=== PATIENT | female | born 1970 | race Caucasian/White ===

== ENCOUNTER → 2019-09-10 17:30 | Outpatient (CLI) | payer OTHER, SELFPAY ==
[2019-05-31 08:30] VITALS: BMI 32.2
--- OUTSIDE RECORDS SUMMARY | 2020-01-16 12:50 | XMS RPT_ITS | CCD ---
:1970 External Reference #:[id number] Author Organization [facility] Care Team Providers Name Role Phone Samuel Primary Care Provider Allergies Reported Allergen Reaction(s) Severity Date of Onset Location Acetaminophen / oxyCODONE Vomiting 12-13-2005 - [facility] ([id number]) Amoxicillin Rash 02-14-2005 - [facility] ([id number]) Erythromycin Vomiting 02-14-2005 - [facility] ([id number]) Sulfamethoxazole / Rash 02-16-2016 - [facility] Trimethoprim ([id number]) topiramate Other: See Comments 04-19-2019 - Frieda denson [facility] ([id number]) Medications Medication Name Sig Date Prescriber Location aluminum chloride aluminum chloride 05-23-2014 Shayy Curry [facility] (DRYSOL) 20 % external (4419 5) solution Indications: Hyperhidrosis Apply 1 application to affected area daily as directed. 1 Bottle 1 05/23/2014 Active Comment: Apply 1 application to affec terrance area daily as directed. Escitalopram escitalopram oxalate 12-08-2019 - Cristal Cueva [facility] (LEXAPRO) 20 mg tablet 01-03-2020 (4419 5) Take 1 tablet by mouth once daily. 90 tablet 1 01/04/2020 Active Comment: Take 1 tablet by mouth once daily. Loratadine loratadine (CLARITIN) 10 07-29-2014 Arpan aggarwal [facility] mg tablet Indications: (4419 5) Chronic rhinitis Take 1 tablet by mouth once daily. 0 07/29/2014 Active Comment: Take 1 tablet by mouth once daily. naratriptan naratriptan (AMERGE) 04-02-2019 - Cristal Cueva [facility] 2.5 mg tablet TAKE 1 01-03-2020 (42880) TABLET BY MOUTH AT ONSET OF HEADACHE, MAY REPEAT IN 4 HOURS IF NEEDED 9 tablet 3 01/04/2020 Active Comment: TAKE 1 TABLET BY MOUTH AT ON SET OF HEADACHE, MAY REPEAT IN 4 HOURS IF NEEDED Ondansetron ondansetron orally 10-08-2016 [facility] disintegrating (ZOFRAN ODT) (81092) 4 mg disintegrating tablet Take 1 tablet by mouth every 6 hours as needed for Nausea/Vomiting. 24 tablet 1 10/08/2016 Active Comment: Take 1 tablet by mouth every 6 hours as needed for Nausea/Vomiting. Promethazine promethazine (PHENERGAN) 10-08-2016 [facility] 50 mg tab(s) Take 1 tablet ( 05219) by mouth every 6 hours as needed. 24 Each 2 10/08/2016 Active Comment: Take 1 tablet by mouth every 6 hours as needed. QUEtiapine QUEtiapine (SEROQUEL) 01-03-2015 Yumiko (Rafita-Patricio) [facility] 25 mg tablet Take 1 Rojelio (92305) tablet by mouth three times daily as needed. TAKE ONE TO TWO TABLETS THREE TIMES DAILY NEEDED 50 tablet 2 01/03/2015 Active Comment: Take 1 tablet by mouth three times daily as needed. TAKE ONE TO TWO TABLETS THREE TIMES DAILY NEEDED Sertraline sertraline (ZOLOFT) 50 04-02-2019 - [facility] mg tablet Indications: 12-22-2019 (4419 5) Anxiety Take 1 tablet by mouth once daily. 90 tablet 3 04/02/2019 12/22/2019 Discontinued Comment: Take 1 tablet by mouth once daily. Problems Active Problems Category Problem Name Status Date Location Adjustment disorders Adjustment disorder with Active 01-08-[address] [place] [address] depressed mood (22191) Anxiety disorders Anxiety Active 04-04-2015 [facility] ([id number]) Disorders of lipid Mixed hyperlipidemia Active 11-30-2015 [facility] metabolism (49906) Headache; including Migraine without aura Active 01-07-2006 - [facility] migraine (61066) Mood disorders Depressive disorder Active [facility] (87326) Other upper Chronic rhinitis Active 08-11-2008 [facility]inic respiratory disease (80566) Past or Other Problems Category Problem Name Status Date Location Fracture of lower Closed fracture of Completed 09-11-2007 - [facility] limb phalanx of foot (58634) Results Result Name Value Range Unit Interpretation Flag Date Location obsolete on 2019-12 OBSOLETE Refill (INTMWS) Normal 01-03-2020 [facility] ARACELY IBRAHIM ([id number]) 1970 F [place] Date Time Provider Department ([id number]) 01/03/20 CRISTAL COUCH INTMWS During your visit today, we recorded the following informati on about you: Lamar Sims 01/03/2020 11:28 AM Signed Patient's request for medication is as follows: Pending Prescriptions Disp Refills ESCITALOPRAM 20 MG TABLET 90 tablet 1 Sig: Take 1 tablet by mouth once daily. ISIS: No NARATRIPTAN 2.5 MG TABLET 9 tablet 3 Sig: TAKE 1 TABLET BY MOUTH AT ONSET OF HEADACHE, MAY REPEAT IN 4 HOURS IF NEEDED ISIS: No Prescription(s) as above. Please process accordingly. Lamar Sweeney LPN 01/04/2020 9:45 AM Signed Patient has been identified by name and date of : Yes Patient phones for refill(s): Pending Prescriptions Disp Refills ESCITALOPRAM 20 MG TABLET 90 tablet 1 Sig: Take 1 tablet by mouth once daily. ISIS: No NARATRIPTAN 2.5 MG TABLET 9 tablet 3 Sig: TAKE 1 TABLET BY MOUTH AT ONSET OF HEADACHE, MAY REPEAT IN 4 HOURS IF NEEDED ISIS: No Date of last office visit in primary care: 12/22/2019 3 month follow-up: 03/22/2020 Lauren Sweeney LPN Allergies As of Date: 01/03/2020 Noted Allergy Reaction AMOXIL (AMOXICILLIN) 02/14/2005 2 - Rash BACTRIM (SULFAMETHOXAZOLE-TRIMETH*02/16/2016 2 - Rash ERYTHROMYCIN 02/14/2005 11 - Vomiting PERCOCET (OXYCODONE-ACETAMINOPHEN)12/13/2005 11 - Vomiting TOPAMAX (TOPIRAMATE) 04/19/2019 14 - Other: See Comments Comments: Vision changes Date Reviewed: 04/15/2019 Reviewed by: Violette Durant LPN - Fully Assessed Reason for Visit: Refill Request [94] Order(s):escitalopram oxalate (LEXAPRO) 20 mg tabletTake 1 t ablet by mouth once daily.Disp: 90 tabletRfl: 1 naratriptan (AMERGE) 2.5 mg tabletTAKE 1 TABLET BY MOUTH AT ONSET OF HEADACHE, MAY REPEAT IN 4 HOURS IF NEEDEDDisp: 9 tabletRfl: 3 Prescriptions as of 01/03/2020 Sig: ESCITALOPRAM 20 MG TABLET Take 1 tablet by mouth once d* NARATRIPTAN 2.5 MG TABLET TAKE 1 TABLET BY MOUTH AT ONS* ONDANSETRON 4 MG DISINTEGRATI* Take 1 tablet by mouth every * PROMETHAZINE 50 MG TABLET Take 1 tablet by mouth every * QUETIAPINE 25 MG TABLET Take 1 tablet by mouth three * LORATADINE 10 MG TABLET Take 1 tablet by mouth once d* Patient taking differently: Take 10 mg by mouth as needed* ALUMINUM CHLORIDE 20 % TOPICA* Apply 1 application to affect * Problem List As Of Date 01/03/2020 Noted Resolved Migraine without aura [G43.009] 01/07/2006 More... ADJUSTMENT DISORDER WITH DEPRESSED MOOD [F43.21]01/07/2006 More... 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 Prescriptions ordered this encounter Disp Refills Start End ESCITALOPRAM 20 MG TABLET 90 t* 1 01/04/2020 Class: [employer] Route: ORAL Sig: Take 1 tablet by mouth once daily. NARATRIPTAN 2.5 MG TABLET 9 ta* 3 01/04/2020 Sig: TAKE 1 TABLET BY MOUTH AT ONSET OF HEADACHE, MAY REPEAT IN 4 HOURS IF NEEDED Medications Discontinued During This Encounter Prescriptions - escitalopram oxalate (LEXAPRO) 20 mg tablet (Discontinued) Take 1 tablet by mouth once daily. - naratriptan (AMERGE) 2.5 mg tablet (Discontinued) TAKE 1 TABLET BY MOUTH AT ONSET OF HEADACHE, MAY REPEA T IN 4 HOURS IF NEEDED Encounter Status:Closed by TAWANNA AYALA CNP on 01/04/20 progress on 2019-11 PROGRESS HNO ID: [id number] Normal 12-22-2019 [facility] Author: Cristal Milian ([id number]) Service: ? Author Type: Physician Type: Progress Notes Filed: 12/22/2019 10:05 AM Note Text: Chief Complaint No chief complaint on file. This Team Access Model visit is a virtual encounter. It requ ired patient-provider interaction for the medical decision making as documented below. HPI Aracely Ibrahim is a 49 year old female who is contacted tocj cheek for a virtual/telemedicine visit. This is an established patient o f Dr. CRISTAL COUCH MD. Aracely has been having a hard time with her divorce, she knew she was not getting better at all so we changed her to lexapro and stopp ed the zoloft she now is feeling much much better, def feels that things a re looking up in just 2 weeks and wants to cont to see how she does. Taking counseling from [facility] and had one yesterda y and that made her feel much much better too. She is very very happy a bout her improvement Past medical history, appointments, medications, allergies r lorenewejarett 12/22/2019 Previous Medical History PAST MEDICAL HISTORY Diagnosis Date - Allergic rhinitis, cause unspecified Allergic rhinitis - Choroidal effusion 04/16/2019 secondary to topamax use - Dysthymic disorder Depression (non-psychotic) - Headache(784.0) Headaches migraines - Snoring - Unspecified sinusitis (chronic) Chronic sinusitis Previous Surgical History PAST SURGICAL HISTORY Procedure Laterality Date - DELIVERY ONLY 05/2004 , low cervical - COLONOSCOP W/ OR W/O [facility] SPEC 02/12/2016 repeat 5 years/family history colon cancer in father - DANDC, DIAG AND/OR THERAPEUTIC 1993 Dilation AND curettage for menorrhagia - ESSURE DEVICE - PAST SURGICAL HISTORY OF 09/03 sinus surgery Family History FAMILY HISTORY Problem Relation Age of Onset - Stroke Mother 39 X2, caused by chiropractor - Hypertension Father - Headache Father - Colon Cancer Father - Prostate Cancer Father - other (Parkinson's Disease) Father - No Known Problems Brother - No Known Problems Daughter - Headache Paternal Grandmother - other (Other) Sister at 1 month of age (hole in heart) Patient Allergies ALLERGIES Allergen Reactions - Amoxil [Amoxicillin] Rash - Bactrim [Sulfametho* Rash - Erythromycin Vomiting - Percocet [Oxycodone* Vomiting - Topamax [Topiramate] Other: See Comments Vision changes Current Medications Current Outpatient Medications on File Prior to Visit Medication Sig - escitalopram oxalate (LEXAPRO) 20 mg tablet Take 1 tablet by mouth once daily. - naratriptan (AMERGE) 2.5 mg tablet TAKE 1 TABLET BY MOUTH AT ONSET OF HEADACHE, MAY REPEAT IN 4 HOURS IF NEEDED - ondansetron orally disintegrating (ZOFRAN ODT) 4 mg disint egrating tablet Take 1 tablet by mouth every 6 hours as needed for Na usea/Vomiting. - promethazine (PHENERGAN) 50 mg tab(s) Take 1 tablet by burak th every 6 hours as needed. - QUEtiapine (SEROQUEL) 25 mg tablet Take 1 tablet by mouth three times daily as needed. TAKE ONE TO TWO TABLETS THREE TIMES DAILY A S NEEDED - loratadine (CLARITIN) 10 mg tablet Take 1 tablet by mouth once daily. (Patient taking differently: Take 10 mg by mouth as needed. ) - aluminum chloride (DRYSOL) 20 % external solution Apply 1 application to affected area daily as directed. No current facility-administered medications on file prior t o visit. Social History Social History Tobacco Use - Smoking status: Never Smoker - Smokeless tobacco: Never Used Substance Use Topics - Alcohol use: Yes Frequency: Monthly or less Drinks per session: 1 or 2 Binge frequency: Never Comment: Seldom - Drug use: No Review of Symptoms GENERAL: No weight loss. No malaise or fevers HEENT: Negative for headaches No eye discharge or redness No earaches or drainage No sore throat Nose POS/NEG for congestion and nasal discharge NECK: Negative for lumps, pain or significant neck swelling RESPIRATORY: No wheezing, SOB, Difficulty breathing. CARDIOVASCULAR: Negative for chest pain GI: No nausea, vomiting, or diarrhea MUSCULOSKELETAL: Negative for muscle aches or bodyaches SKIN: Negative for lesions, rash, and itching Neuro: No lightheadedness or dizziness EXAM: LMP 07/10/2017 (Approximate) Deferred physical exam as visit was completed over the phone . Virtual visit completed using video, limited exam completed. General Appearance: Well appearing, alert, in no acute distr ess, well-hydrated, well nourished. Skin: Skin color Head: Normocephalic Psych: Attitude - cooperative, easily engaged in conversatio n Appearance - normal, hygiene and grooming appropriate Affect - euthymic, normal mood Mental status: Alert, attentive. Speech is clear and fluent with good repetition, comprehension Coordination: No abnormal or extraneous movements. Gait/Stance: Posture is normal. Health Maintenance List HEPATITIS C SCREENING due on 1990 HIV SCREENING due on 1990 DTAP,TDAP,TD(1 - Tdap) due on 1991 MAMMOGRAM due on 08/07/2018 INFLUENZA(1) due on 11/30/2019 DIABETES SCREEN due on 05/30/2020 COLONOSCOPY due on 02/11/2021 LIPID SCREEN due on 05/30/2022 PAP TESTING due on 08/07/2022 HPV TESTING due on 08/07/2022 MENINGOCOCCAL CONJUGATE Completed Data reviewed Last 5 Encounter BP Readings: Date: BP: 04/15/2019 138/88 04/02/2019 122/76 08/07/2017 130/84 07/11/2017 136/86 05/30/2017 114/76 BMI Readings from Last 5 Encounters: 04/15/19 : 33.81 kg/m? 04/02/19 : 33.64 kg/m? 08/07/17 : 33.47 kg/m? 07/11/17 : 33.30 kg/m? 05/30/17 : 32.27 kg/m? Last 5 Encounter Wt Readings: Date: Wt: 04/15/2019 89.4 kg (197 lb) 04/02/2019 88.9 kg (196 lb) 08/07/2017 88.5 kg (195 lb) 07/11/2017 88 kg (194 lb) 05/30/2017 85.3 kg (188 lb) Medication and allergy list reviewed, reconciled and updated 12/22/2019. ASSESSMENT/PLAN: 1. Adjustment disorder with depressed mood - ICD9: 309.0, IC D10: F43.21 (primary diagnosis) I asked the patient to con lexapro, we will see her in 2 wee ks at that time if she feels she needs to have anything added on we can decide that 2. 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 progress on 2019-11 PROGRESS HNO ID: [id number] Normal 12-08-2019 [facility] Author: Cristal Milian ([id number]) Service: ? Author Type: Physician Type: Progress Notes Filed: 12/08/2019 11:16 AM Note Text: Chief Complaint No chief complaint on file. This Team Access Model visit is a virtual encounter. It requ ired patient-provider interaction for the medical decision making as documented below. SJ Ibrahim is a 49 year old female who is contacted to y for a virtual/telemedicine visit. This is an established patient o f Dr. CRISTAL COUCH MD. Patient is going through a divorce, she never expected this. She notes she is really struggling right now, as they live in the the same house and he is out and dating, while she is having a hard time to let go . To add to that , with school being different she has so much to do ladarius t is different no down time. She is Seeing a therapist who is definitely he lping her. Past medical history, appointments, medications, allergies r eviewed 12/08/2019 Previous Medical History PAST MEDICAL HISTORY Diagnosis Date - Allergic rhinitis, cause unspecified Allergic rhinitis - Choroidal effusion 04/16/2019 secondary to topamax use - Dysthymic disorder Depression (non-psychotic) - Headache(784.0) Headaches migraines - Snoring - Unspecified sinusitis (chronic) Chronic sinusitis Previous Surgical History PAST SURGICAL HISTORY Procedure Laterality Date - DELIVERY ONLY 05/2004 , low cervical - COLONOSCOP W/ OR W/O [facility] SPEC 02/12/2016 repeat 5 years/family history colon cancer in father - DANDC, DIAG AND/OR THERAPEUTIC 1993 Dilation AND curettage for menorrhagia - ESSURE DEVICE - PAST SURGICAL HISTORY OF 09/03 sinus surgery Family History FAMILY HISTORY Problem Relation Age of Onset - Stroke Mother 39 X2, caused by chiropractor - Hypertension Father - Headache Father - Colon Cancer Father - Prostate Cancer Father - other (Parkinson's Disease) Father - No Known Problems Brother - No Known Problems Daughter - Headache Paternal Grandmother - other (Other) Sister at 1 month of age (hole in heart) Patient Allergies ALLERGIES Allergen Reactions - Amoxil [Amoxicillin] Rash - Bactrim [Sulfametho* Rash - Erythromycin Vomiting - Percocet [Oxycodone* Vomiting - Topamax [Topiramate] Other: See Comments Vision changes Current Medications Current Outpatient Medications on File Prior to Visit Medication Sig - sertraline (ZOLOFT) 50 mg tablet Take 1 tablet by mouth on ce daily. - naratriptan (AMERGE) 2.5 mg tablet TAKE 1 TABLET BY MOUTH AT ONSET OF HEADACHE, MAY REPEAT IN 4 HOURS IF NEEDED - ondansetron orally disintegrating (ZOFRAN ODT) 4 mg disint egrating tablet Take 1 tablet by mouth every 6 hours as needed for Na usea/Vomiting. - promethazine (PHENERGAN) 50 mg tab(s) Take 1 tablet by burak th every 6 hours as needed. - QUEtiapine (SEROQUEL) 25 mg tablet Take 1 tablet by mouth three times daily as needed. TAKE ONE TO TWO TABLETS THREE TIMES DAILY A S NEEDED - loratadine (CLARITIN) 10 mg tablet Take 1 tablet by mouth once daily. (Patient taking differently: Take 10 mg by mouth as needed. ) - aluminum chloride (DRYSOL) 20 % external solution Apply 1 application to affected area daily as directed. No current facility-administered medications on file prior t o visit. Social History Social History Tobacco Use - Smoking status: Never Smoker - Smokeless tobacco: Never Used Substance Use Topics - Alcohol use: Yes Frequency: Monthly or less Drinks per session: 1 or 2 Binge frequency: Never Comment: Seldom - Drug use: No Review of Symptoms GENERAL: No weight loss. No malaise or fevers HEENT: Negative for headaches No eye discharge or redness No earaches or drainage No sore throat Nose POS/NEG for congestion and nasal discharge NECK: Negative for lumps, pain or significant neck swelling RESPIRATORY: No wheezing, SOB, Difficulty breathing. CARDIOVASCULAR: Negative for chest pain GI: No nausea, vomiting, or diarrhea MUSCULOSKELETAL: Negative for muscle aches or bodyaches SKIN: Negative for lesions, rash, and itching Neuro: No lightheadedness or dizziness EXAM: LMP 07/10/2017 (Approximate) Deferred physical exam as visit was completed over the phone . Virtual visit completed using video, limited exam completed. General Appearance: Well appearing, alert, in no acute distr ess, well-hydrated, well nourished. Skin: Skin color Head: Normocephalic Psych: Attitude - cooperative, easily engaged in conversatio n Appearance - normal, hygiene and grooming appropriate Affect - euthymic, normal mood Mental status: Alert, attentive. Speech is clear and fluent with good repetition, comprehension Coordination: No abnormal or extraneous movements. Gait/Stance: Posture is normal. Health Maintenance List HEPATITIS C SCREENING due on 1990 HIV SCREENING due on 1990 DTAP,TDAP,TD(1 - Tdap) due on 1991 MAMMOGRAM due on 08/07/2018 INFLUENZA(1) due on 11/30/2019 DIABETES SCREEN due on 05/30/2020 COLONOSCOPY due on 02/11/2021 LIPID SCREEN due on 05/30/2022 PAP TESTING due on 08/07/2022 HPV TESTING due on 08/07/2022 MENINGOCOCCAL CONJUGATE Completed Data reviewed Last 5 Encounter BP Readings: Date: BP: 04/15/2019 138/88 04/02/2019 122/76 08/07/2017 130/84 07/11/2017 136/86 05/30/2017 114/76 BMI Readings from Last 5 Encounters: 04/15/19 : 33.81 kg/m? 04/02/19 : 33.64 kg/m? 08/07/17 : 33.47 kg/m? 07/11/17 : 33.30 kg/m? 05/30/17 : 32.27 kg/m? Last 5 Encounter Wt Readings: Date: Wt: 04/15/2019 89.4 kg (197 lb) 04/02/2019 88.9 kg (196 lb) 08/07/2017 88.5 kg (195 lb) 07/11/2017 88 kg (194 lb) 05/30/2017 85.3 kg (188 lb) Medication and allergy list reviewed, reconciled and updated 12/08/2019. ASSESSMENT/PLAN: 1. Depression, unspecified depression type - ICD9: 311, ICD1 0: F32.9 (primary diagnosis) See hpi, she will benefit from trying a different medication as she was not doing well on the zoloft 2. Anxiety - ICD9: 300.00, ICD10: F41.9 lexapro will help her with both 3. Mixed hyperlipidemia - ICD9: 272.2, ICD10: E78.2 - good control - Continue current medication. MD tor [facility] on 2019-09-13 VERNELL[facility] Telephone (FAMPWS) Normal 09-13-2019 [place] [facility] ARACELY IBRAHIM ([id number]) 1970 [facility] Date Time Provider Department ([id number]) 09/13/19 YENNI BURCH (VERNELL) TYL[place]ADEN During your visit today, we recorded the following informati on about you: Yeni Serrato RN 09/13/2019 12:02 PM Signed Patient had COVID-19 testing at [facility] last week, asking for te st results. Please review and advise. MARYAM Sanchez APRN.CNP 09/13/2019 12:22 PM Signed I've not seen any covid resu lts yet. Can we please check with [facility]. John Zhang LPN 09/13/2019 1:03 PM Signed Per [facility]- results are pending. John Burch APRN.CNP 09/13/2019 1:45 PM Signed Please let patient know that there are no results yet. OMA Isaacs LPN 09/13/2019 2:20 PM Signed Pt notified of the same. Advised we could contact her once w e receive the results. John Zhang LPN 09/15/2019 9:09 AM Signed *Pt returned call to office, notified of negative results. Yenni Burch APRN.VERNELL 09/15/2019 10:51 AM Signed Can please let patient know that we rece ived the results and her covid testing was negative. Because there can be false negatives with the testing, we do still encourage you to self-isolate for 10 days after the onset of symptoms. OMA Isaacs LPN 09/15/2019 11:55 AM Signed TC to pt, left message for pt to return call to office. John Zhang LPN Brisa Robin BROOKS 09/15/2019 2:52 PM Signed Patient returned call and went over resu lts, notes from Yenni Burch [employer] G[employer] HELPER with understanding. Allergies As of Date: 09/13/2019 Noted Allergy Reaction AMOXIL (AMOXICILLIN) 02/14/2005 2 - Rash BACTRIM (SULFAMETHOXAZOLE-TRIMETH*02/16/2016 2 - Rash ERYTHROMYCIN 02/14/2005 11 - Vomiting PERCOCET (OXYCODONE-ACETAMINOPHEN)12/13/2005 11 - Vomiting TOPAMAX (TOPIRAMATE) 04/19/2019 14 - Other: See Comments Comments: Vision changes Date Reviewed: 04/15/2019 Reviewed by: Violette Durant LPN - Fully Assessed Reason for Visit: Outside Lab Results [753] Cmt: [facility] lab results Prescriptions as of 09/13/2019 Sig: CEFDINIR 300 MG CAPSULE Take 1 capsule by mouth twice* SERTRALINE 50 MG TABLET Take 1 tablet by mouth once d* NARATRIPTAN 2.5 MG TABLET TAKE 1 TABLET BY MOUTH AT ONS* ONDANSETRON 4 MG DISINTEGRATI* Take 1 tablet by mouth every * PROMETHAZINE 50 MG TABLET Take 1 tablet by mouth every * QUETIAPINE 25 MG TABLET Take 1 tablet by mouth three * LORATADINE 10 MG TABLET Take 1 tablet by mouth once d* Patient taking differently: Take 10 mg by mouth as needed* ALUMINUM CHLORIDE 20 % TOPICA* Apply 1 application to affect * Problem List As Of Date 09/13/2019 Noted Resolved Migraine without aura [G43.009] 01/07/2006 More... ADJUSTMENT DISORDER WITH DEPRESSED MOOD [F43.21]01/07/2006 More... 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 Encounter Status:Closed by JOHN ZHANG LPN on 09/13/19 progress on 2019-08 PROGRESS HNO ID: [id number] Normal 09-10-2019 [facility] Author: Yenni (Machining [employer] Supervisor) Kiersten [place] ([id number]) Service: ? Author Type: Nurse Practitioner Type: Progress Notes Filed: 09/10/2019 4:36 PM Note Text: Chief Complaint Patient presents with: Telemedicine This Team Access Model visit is a virtual encounter. It requ ired patient-provider interaction for the medical decision making as documented below. Patient was offered a virtual/telemedicine appointmen t in lieu of an office visit due to recommendations to reduce patient exp osure to COVID-19. HIPAA secured video was used for evaluation of this patient. Patient agrees to the visit: Yes Patient Location: [facility] Aracely Ibrahim is a 49 year old female who is contacted [facility] for a virtual visit This is an established patient of Dr. CRISTAL MARTINEZ MD. 49 year old female with c/o URI sx over the last 8 days with Sore throat: Yes. Runny/stuffy nose: No. Postnasal drip: No. Throat clearing: No. Sinus pain/ pressure: No. Teeth pain: No. Headache Yes. moreso on the right side. Has hx of migraines. Body aches No. Ear pain: Yes - both ears -- but today is worse on the right . Cough: No. Production: N/a. Fever: Yes. Tmax 99.5 - 100. Hx asthma No. Hx pneumonia No. Smoker: No. OTC meds tried: took her amerge. Neither dose helped headach e. Did try tylenol/ibuprofen. Criteria: ? Age > 60 years old - no ? Age < 36 months - no ? On immunosuppressive therapy - no ? Cancer - no ? End-stage renal disease on dialysis - no ? Diabetes - no ? Hypertension - no ? Coronary artery disease - no ? Heart failure reduced ejection fraction - no ? Lung disease - no ? HIV/AIDS - no ? Solid organ transplants - no ? Obesity - yes -- BMI 33.81 AND Symptoms consistent with influenza-like illness (any two of the following): ? Cough - no ? Difficulty breathing - no ? Diarrhea - yes - but not worse than normal. ? Fever - yes ? Myalgia - yes -- today just doesn't feel good. ? Anosmia - no ? Loss of taste - no ? Vomiting - no. + nausea. 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 Past medical history, appointments, medications, allergies r eviewed 09/10/2019 Previous Medical History PAST MEDICAL HISTORY Diagnosis Date - Allergic rhinitis, cause unspecified Allergic rhinitis - Choroidal effusion 04/16/2019 secondary to topamax use - Dysthymic disorder Depression (non-psychotic) - Headache(784.0) Headaches migraines - Snoring - Unspecified sinusitis (chronic) Chronic sinusitis Previous Surgical History PAST SURGICAL HISTORY Procedure Laterality Date - DELIVERY ONLY 05/2004 , low cervical - COLONOSCOP W/ OR W/O [facility] SPEC 02/12/2016 repeat 5 years/family history colon cancer in father - DANDC, DIAG AND/OR THERAPEUTIC 1993 Dilation AND curettage for menorrhagia - ESSURE DEVICE - PAST SURGICAL HISTORY OF 09/03 sinus surgery Family History FAMILY HISTORY Problem Relation Age of Onset - Stroke Mother 39 X2, caused by chiropractor - Hypertension Father - Headache Father - Colon Cancer Father - Prostate Cancer Father - other (Parkinson's Disease) Father - No Known Problems Brother - No Known Problems Daughter - Headache Paternal Grandmother - other (Other) Sister at 1 month of age (hole in heart) Patient Allergies ALLERGIES Allergen Reactions - Amoxil [Amoxicillin] Rash - Bactrim [Sulfametho* Rash - Erythromycin Vomiting - Percocet [Oxycodone* Vomiting - Topamax [Topiramate] Other: See Comments Vision changes Current Medications Current Outpatient Medications on File Prior to Visit Medication Sig - sertraline (ZOLOFT) 50 mg tablet Take 1 tablet by mouth on ce daily. - naratriptan (AMERGE) 2.5 mg tablet TAKE 1 TABLET BY MOUTH AT ONSET OF HEADACHE, MAY REPEAT IN 4 HOURS IF NEEDED - ondansetron orally disintegrating (ZOFRAN ODT) 4 mg disint egrating tablet Take 1 tablet by mouth every 6 hours as needed for Na usea/Vomiting. - promethazine (PHENERGAN) 50 mg tab(s) Take 1 tablet by burak th every 6 hours as needed. - QUEtiapine (SEROQUEL) 25 mg tablet Take 1 tablet by mouth three times daily as needed. TAKE ONE TO TWO TABLETS THREE TIMES DAILY A S NEEDED - loratadine (CLARITIN) 10 mg tablet Take 1 tablet by mouth once daily. (Patient taking differently: Take 10 mg by mouth as needed. ) - aluminum chloride (DRYSOL) 20 % external solution Apply 1 application to affected area daily as directed. No current facility-administered medications on file prior t o visit. Social History Social History Tobacco Use - Smoking status: Never Smoker - Smokeless tobacco: Never Used Substance Use Topics - Alcohol use: Yes Comment: Seldom - Drug use: No EXAM: LMP 07/10/2017 (Approximate) Deferred physical exam as visit was completed over the phone /[employer]. Virtual visit completed using video, limited exam completed. General Appearance: Patient sounds or appears ill: No Skin: Skin color normal Head: Normocephalic Patient is not able to speak in complete sentences: No Patient has labored breathing: No. Patient is audibly coughing: No Psych: Attitude - cooperative, easily engaged in conversatio n Affect - Euthymic, normal mood Mental status: Alert. Speech is clear and fluent with good r epetition, comprehension Appearance - Normal hygiene and grooming appropriate Coordination: No abnormal or extraneous movements. Gait/Stance: Posture is normal. Health Maintenance List HEPATITIS C SCREENING due on 1990 HIV SCREENING due on 1990 DTAP,TDAP,TD(1 - Tdap) due on 1991 MAMMOGRAM due on 08/07/2018 INFLUENZA(Season Ended) due on 11/30/2019 DIABETES SCREEN due on 05/30/2020 COLORECTAL CANCER SCREENING,SEE MODIFIER due on 02/11/2021 LIPID SCREEN due on 05/30/2022 PAP TESTING due on 08/07/2022 HPV TESTING due on 08/07/2022 Data reviewed Last 5 Encounter BP Readings: Date: BP: 04/15/2019 138/88 04/02/2019 122/76 08/07/2017 130/84 07/11/2017 136/86 05/30/2017 114/76 BMI Readings from Last 5 Encounters: 04/15/19 : 33.81 kg/m? 04/02/19 : 33.64 kg/m? 08/07/17 : 33.47 kg/m? 07/11/17 : 33.30 kg/m? 05/30/17 : 32.27 kg/m? Last 5 Encounter Wt Readings: Date: Wt: 04/15/2019 89.4 kg (197 lb) 04/02/2019 88.9 kg (196 lb) 08/07/2017 88.5 kg (195 lb) 07/11/2017 88 kg (194 lb) 05/30/2017 85.3 kg (188 lb) Medication and allergy list reviewed, reconciled and updated 09/10/2019 ASSESSMENT/PLAN: 1. URI, acute - ICD9: 465.9, ICD10: J06.9 (primary diagnosis ) - Discussed viral etiology and rationale for treatment. - Symptomatic treatment with prn analgesia - Supportive care with fluids and rest - if no improvement or worsening over the next couple of day s -- start the omnicef. - CEFDINIR 300 MG CAPSULE 2. Suspected COVID-19 virus infection - ICD9: , ICD10: Z20.8 28 Discussed cannot r/o covid infection based on symptoms. Covid orders faxed to [facility] -- pt will call to schedule. Discussed to self-isolate. Treat symptoms. To ER with any severe symptoms. Discussed treatment plan and patient voices understanding. Patient's questions answered appropriately. Medications and potential side effects were discussed and pa tient voices understanding. Yenni Burch APRN.[employer] progress on 2019-03 PROGRESS HNO ID: [id number] Normal 04-15-2019 [place] Author: John ([facility]) [facility] Service: ? [place] Author Type: Nurse Practitioner ([id number]) Type: Progress Notes Filed: 04/15/2019 12:28 PM Note Text: CC: Patient presents with: Blurred Vision: just stated this morning HPI Aracely Ibrahim is a 48 year old female who presents today fo r vision changes. Blurry vision started upon waking today. Reports bad heada alexander last night, described as different from her migraine headaches. R esolved with ibuprofen. Did not sleep well as a result and woke with blur red vision to both eyes. Wears glasses, last eye exam ~1 year ago. Denies fever, chills, double vision, slurred speech, facial droop, numbness, tingling, weakness, lightheadedness, dizziness or syncope. Started Topamax ~14 days ago for migraines. Notes isolated episode of tingling to her fingertips ~1 week ago, now resolved. REVIEW OF SYSTEMS General: no fevers, no chills, no change in appetite and no change in energy HEENT: no changes in hearing, no sinus or nasal problems, Se e HPI Respiratory: no cough, no wheezing, no shortness of breath Cardiovascular: no chest pain, no chest pressure, no palpita tions and no swelling Neurologic: See HPI PAST MEDICAL HISTORY Diagnosis Date - Allergic rhinitis, cause unspecified Allergic rhinitis - Dysthymic disorder Depression (non-psychotic) - Headache(784.0) Headaches migraines - Snoring - Unspecified sinusitis (chronic) Chronic sinusitis PAST SURGICAL HISTORY Procedure Laterality Date - DELIVERY ONLY 05/2004 , low cervical - COLONOSCOP W/ OR W/O [facility] SPEC 02/12/2016 repeat 5 years/family history colon cancer in father - DANDC, DIAG AND/OR THERAPEUTIC 1993 Dilation AND curettage for menorrhagia - ESSURE DEVICE - PAST SURGICAL HISTORY OF 09/03 sinus surgery ALLERGIES Amoxil [Amoxicillin]; Bactrim [Sulfamethoxazole-Tr imethoprim]; Erythromycin; Percocet [Oxycodone-Acetaminophen] MEDICATIONS sertraline (ZOLOFT) 50 mg tablet Take 1 tablet by mouth once daily. topiramate (TOPAMAX) 25 mg tablet Take 1 tablet by mouth lucretia ly at bedtime. naratriptan (AMERGE) 2.5 mg tablet TAKE 1 TABLET BY MOUTH AT ONSET OF HEADACHE, MAY REPEAT IN 4 HOURS IF NEEDED ondansetron orally disintegrating (ZOFRAN ODT) 4 mg disinteg rating tablet Take 1 tablet by mouth every 6 hours as needed for Nausea/Vo miting. promethazine (PHENERGAN) 50 mg tab(s) Take 1 tablet by mouth every 6 hours as needed. QUEtiapine (SEROQUEL) 25 mg tablet Take 1 tablet by mouth th ree times daily as needed. TAKE ONE TO TWO TABLETS THREE TIMES DAILY A S NEEDED loratadine (CLARITIN) 10 mg tablet Take 1 tablet by mouth on ce daily. aluminum chloride (DRYSOL) 20 % external solution Apply 1 ap plication to affected area daily as directed. FAMILY HISTORY Problem Relation Age of Onset - Stroke Mother 39 X2, caused by chiropractor - Hypertension Father - Headache Father - Colon Cancer Father - Prostate Cancer Father - other (Parkinson's Disease) Father - No Known Problems Brother - No Known Problems Daughter - Headache Paternal Grandmother - other (Other) Sister at 1 month of age (hole in heart) Social History Tobacco Use - Smoking status: Never Smoker - Smokeless tobacco: Never Used Substance Use Topics - Alcohol use: Yes Comment: Seldom - Drug use: No PHYSICAL EXAM BP 114/94 (BP Site: Left Arm, BP Position: Sitting, BP Cuff Size: Large Adult) Pulse 100 Resp 18 Wt 89.4 kg (197 lb) BMI 33. 81 kg/m? General Appearance: well appearing, in no acute distress, al ert Pysch: mood and affect broad and appropriate Skin: Skin color, texture, turgor normal for age; Head: normocephalic, atraumatic Eyes: PERRLA, EOM's intact, conjunctiva pink and moist, no i cterus, sclera white, non-injected Ears: external ears normal to inspection and palpation, antonio ls clear, Left tympanic membrane normal. , Right tympanic membrane normal Lungs: lungs clear to auscultation. No wheezing, rhonchi, ra les Heart: RRR without murmur, gallop, or rubs. No ectopy Neurological: Gait normal. Sensation grossly intact., Negati ve findings: R handed., speech normal, mental status intact, cranial nerv es 2-12 intact, Romberg negative, muscle tone normal, muscle strengt h normal, rapid alternating movements normal, finger to nose normal, DTAP,TDAP,TD(1 - Tdap) due on 1983 MAMMOGRAM due on 08/07/2018 INFLUENZA(1) due on 11/29/2018 DIABETES SCREEN due on 05/30/2020 COLORECTAL CANCER SCREENING,SEE MODIFIER due on 02/11/2021 LIPID SCREEN due on 05/30/2022 PAP TESTING due on 08/07/2022 HPV TESTING due on 08/07/2022 ASSESSMENT/PLAN: 1. Blurred vision, bilateral - ICD9: 368.8, ICD10: H53.8 - Neuro exam unremarkable except reported blurry vision, do not feel imaging is necessary at this time - Suspect symptoms are side effect of Topamax recently start ed for Migraines - Stop Topamax - Schedule with eye doctor AMBROCIO - Reviewed red flag s/s and when to seek immediate medical a ttention, patient verbalizes understanding - Follow up in 2-4 weeks to reevaluate migraine prophylaxis 2. Elevated blood pressure reading in office without diagnos is of hypertension - ICD9: 796.2, ICD10: R03.0 - Recommended regular aerobic exercise. - Encouraged avoidance of excessive alcohol intake - Recheck in 2-4 weeks, sooner if needed. - Goal of BP <130/80 John James APRN.[facility] Prescription instructions reviewed with patient as applicabl e. Potential red flag symptoms discussed with the patient. Reviewed appro priate action plan to take if red flag symptoms occur. Patient agreeable t o treatment plan. cnov on 2019-04-15 CNOV Office Visit (INTMWS) Normal 04-15-[address] [place] [address] ARACELY Finch ([id number]) 1970 F [place] Date Time Provider Department ([id number]) 04/15/19 11:20 AM JOHN JAMES (VERNELL) INTM[facility] During your visit today, we recorded the following informati on about you: Pulse Respiration Blood pressure Weight 100/minute 18/minute 138/88 89.4 kg John James APRN.CNP 04/15/2019 12:28 PM Signed CC: Patient presents with: Blurred Vision: just stated this morning HPI Aracely Ibrahim is a 48 year old female who prese nts today for vision changes. Blurry vision started upon waking today. Reports bad hea dache last night, described as different from her migraine headaches. Re solved with ibuprofen. Did not sleep well as a result and woke with blurred vision to both eyes. Wears glasses, last eye exam ~1 year ago. Denies fever, chills, double vision, slurred speech, f acial droop, numbness, tingling, weakness, lightheadedness, dizziness or syncope. Started Topamax ~14 days ago for migraines. Notes isolated episode of ti ngling to her fingertips ~1 week ago, now resolved. REVIEW OF SYSTEMS General: no fevers, no chills, no change in appetite a nd no change in energy HEENT: no changes in hearing, no sinus or nasal problems, Se e HPI Respiratory: no cough, no wheezing, no shortness of breath Cardiovascular: no chest pain, no chest pressure, no palpita tions and no swelling Neurologic: See HPI PAST MEDICAL HISTORY Diagnosis Date - Allergic rhinitis, cause unspecified Allergic rhinitis - Dysthymic disorder Depression (non-psychotic) - Headache(784.0) Headaches migraines - Snoring - Unspecified sinusitis (chronic) Chronic sinusitis PAST SURGICAL HISTORY Procedure Laterality Date - DELIVERY ONLY 05/2004 , low cervical - COLONOSCOP W/ OR W/O [facility] SPEC 02/12/2016 repeat 5 years/family history colon cancer in father - DANDC, DIAG AND/OR THERAPEUTIC 1993 Dilation AND curettage for menorrhagia - ESSURE DEVICE - PAST SURGICAL HISTORY OF 09/03 sinus surgery ALLERGIES Amoxil [Amoxicillin]; Bactrim [Sulfamethoxazole-Tr imethoprim]; Erythromycin; Percocet [Oxycodone-Acetaminophen] MEDICATIONS sertraline (ZOLOFT) 50 mg tablet Take 1 tablet by mouth once daily. topiramate (TOPAMAX) 25 mg tablet Take 1 tablet by mouth lucretia ly at bedtime. naratriptan (AMERGE) 2.5 mg tablet TAKE 1 TABLET BY MOUTH AT ONSET OF HEADACHE, MAY REPEAT IN 4 HOURS IF NEEDED ondansetron orally disintegrating (ZOFRA N ODT) 4 mg disintegrating tablet Take 1 tablet by mouth every 6 hours as needed for Nausea/Vomitin g. promethazine (PHENERGAN) 50 mg tab(s) Take 1 tab let by mouth every 6 hours as needed. QUEtiapine (SEROQUEL) 25 mg tablet Take 1 tablet by mouth three times daily as needed. TAKE ONE TO TWO TABLETS THREE TIMES DAILY NEEDED loratadine (CLARITIN) 10 mg tablet Take 1 tablet by mouth on ce daily. aluminum chloride (DRYSOL) 20 % external solution Apply 1 ap plication to affected area daily as directed. FAMILY HISTORY Problem Relation Age of Onset - Stroke Mother 39 X2, caused by chiropractor - Hypertension Father - Headache Father - Colon Cancer Father - Prostate Cancer Father - other (Parkinson's Disease) Father - No Known Problems Brother - No Known Problems Daughter - Headache Paternal Grandmother - other (Other) Sister at 1 month of age (hole in heart) Social History Tobacco Use - Smoking status: Never Smoker - Smokeless tobacco: Never Used Substance Use Topics - Alcohol use: Yes Comment: Seldom - Drug use: No PHYSICAL EXAM BP 114/94 (BP Site: Left Arm, BP Positio n: Sitting, BP Cuff Size: Large Adult) Pulse 100 Resp 18 Wt 89.4 kg (197 lb) BMI 33.81 kg/m ? General Appearance: well appearing, in no acute distress, al ert Pysch: mood and affect broad and appropriate Skin: Skin color, texture, turgor normal for age; Head: normocephalic, atraumatic Eyes: PERRLA, EOM's intact, conjunctiva pink and moist, no i cterus, sclera white, non-injected Ears: external ears normal to inspection and palpation, antonio ls clear, Left tympanic membrane normal. , Right tympanic membrane normal Lungs: lungs clear to auscultation. No wheezing, rhonchi, ra les Heart: RRR without murmur, gallop, or rubs. No ectopy Neurological: Gait normal. Sensation grossly intact., Negati ve findings: R handed., speech normal, mental status intact, cranial nerves 2-12 intact, Romberg negative, muscle ton e normal, muscle strength normal, rapid alternating movements normal, finger to nose normal, DTAP,TDAP,TD(1 - Tdap) due on 1983 MAMMOGRAM due on 08/07/2018 INFLUENZA(1) due on 11/29/2018 DIABETES SCREEN due on 05/30/2020 COLORECTAL CANCER SCREENING,SEE MODIFIER due on 02/11/2021 LIPID SCREEN due on 05/30/2022 PAP TESTING due on 08/07/2022 HPV TESTING due on 08/07/2022 ASSESSMENT/PLAN: 1. Blurred vision, bilateral - ICD9: 368.8, ICD10: H53.8 - Neuro exam unremarkable except reported blurry visio n, do not feel imaging is necessary at this time - Suspect symptoms are side effect of Topamax recently started for Migraines - Stop Topamax - Schedule with eye doctor AMBROCIO - Reviewed red flag s/s and when to seek immedia te medical attention, patient verbalizes understanding - Follow up in 2-4 weeks to reevaluate migraine prophylaxis 2. Elevated blood pressure reading in of fice without diagnosis of hypertension - ICD9: 796.2, ICD10: R03.0 - Recommended regular aerobic exercise. - Encouraged avoidance of excessive alcohol intake - Recheck in 2-4 weeks, sooner if needed. - Goal of BP <130/80 John James APRN.[employer] Prescription instructions reviewed with patient as robert licable. Potential red flag symptoms discussed with the patient. Review ed appropriate action plan to take if red flag symptoms occur. Patient agreeable to treatm ent plan. Referring Provider: SELF [[id number]] Allergies As of Date: 04/15/2019 Noted Allergy Reaction AMOXIL (AMOXICILLIN) 02/14/2005 2 - Rash BACTRIM (SULFAMETHOXAZOLE-TRIMETH*02/16/2016 2 - Rash ERYTHROMYCIN 02/14/2005 11 - Vomiting PERCOCET (OXYCODONE-ACETAMINOPHEN)12/13/2005 11 - Vomiting Date Reviewed: 04/15/2019 Reviewed by: Violette Durant LPN - Fully Assessed Reason for Visit: Blurred Vision [216] Cmt: just stated this morning Primary Visit Diagnosis:Blurred vision, bilateral [H53.8] Other Visit Diagnosis:Elevated blood pressure reading in off ice without diagnosis of hypertension [R03.0] Prescriptions as of 04/15/2019 Sig: SERTRALINE 50 MG TABLET Take 1 tablet by mouth once d* NARATRIPTAN 2.5 MG TABLET TAKE 1 TABLET BY MOUTH AT ONS* ONDANSETRON 4 MG DISINTEGRATI* Take 1 tablet by mouth every * PROMETHAZINE 50 MG TABLET Take 1 tablet by mouth every * QUETIAPINE 25 MG TABLET Take 1 tablet by mouth three * LORATADINE 10 MG TABLET Take 1 tablet by mouth once d* Patient taking differently: Take 10 mg by mouth as needed* ALUMINUM CHLORIDE 20 % TOPICA* Apply 1 application to affect * Problem List As Of Date 04/15/2019 Noted Resolved Migraine without aura [G43.009] 01/07/2006 More... ADJUSTMENT DISORDER WITH DEPRESSED MOOD [F43.21]01/07/2006 More... 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 Medications Discontinued During This Encounter topiramate (TOPAMAX) 25 mg tablet 30 t* 3 04/02/2019 04/15/2019 Route: ORAL Sig: Take 1 tablet by mouth daily at bedtime. Disc: Reason for discontinue is not on file. Follow-up and Disposition History Recorded Encounter Status:Closed by JOHN JAMES CNP on 04/15/19 progress on 2019-03 PROGRESS HNO ID: [id number] Normal 04-02-2019 [facility] Author: Cristal Milian ([id number]) Service: ? Author Type: Physician Type: Progress Notes Filed: 04/02/2019 5:36 PM Note Text: Reason for Visit Patient presents with: Established Patient: migraine x 4 days and discuss meds Hope Truong Ibrahim is a 48 year old female who presents here tod ay for Above Complaints.. Health Maintenance DTAP,TDAP,TD(1 - Tdap) MAMMOGRAM INFLUENZA(1) HPI Migraine for the past many years, of late it has been during her periods always in addition to what she has other than the periods. C urrent migraine is lasted her 4 days. toraladol worked initially on day 2, but the next day it was on the other side. Currently she is on h er period. She thinks her migraines have increased in frequency, she faust s to take 2 amerge instead of 1. She has been very busy the last year with her daughter who w as not feeling well and really could not concentrate on her health but now she is ready to work on her health maintenance. Will get blood work and w ill get mammogram done. No problem-specific Assessment AND Plan notes found for this encounter. PAST MEDICAL HISTORY Diagnosis Date - Allergic rhinitis, cause unspecified Allergic rhinitis - Dysthymic disorder Depression (non-psychotic) - Headache(784.0) Headaches migraines - Snoring - Unspecified sinusitis (chronic) Chronic sinusitis PAST SURGICAL HISTORY Procedure Laterality Date - DELIVERY ONLY 05/2004 , low cervical - COLONOSCOP W/ OR W/O [facility] SPEC 02/12/2016 repeat 5 years/family history colon cancer in father - DANDC, DIAG AND/OR THERAPEUTIC 1993 Dilation AND curettage for menorrhagia - ESSURE DEVICE - PAST SURGICAL HISTORY OF 09/03 sinus surgery FAMILY HISTORY Problem Relation Age of Onset - Stroke Mother 39 X2, caused by chiropractor - Hypertension Father - Headache Father - Colon Cancer Father - Prostate Cancer Father - other (Parkinson's Disease) Father - No Known Problems Brother - No Known Problems Daughter - Headache Paternal Grandmother - other (Other) Sister at 1 month of age (hole in heart) Social History Tobacco Use - Smoking status: Never Smoker - Smokeless tobacco: Never Used Substance Use Topics - Alcohol use: Yes Comment: Seldom - Drug use: No Past medical history, appointments, medications, allergies r eviewed. Pertinent Lab/Diagnostic Studies are reviewed and discussed today Current Outpatient Medications: - naratriptan (AMERGE) 2.5 mg tablet - sertraline (ZOLOFT) 50 mg tablet - ondansetron orally disintegrating (ZOFRAN ODT) 4 mg disint egrating tablet - promethazine (PHENERGAN) 50 mg tab(s) - QUEtiapine (SEROQUEL) 25 mg tablet - loratadine (CLARITIN) 10 mg tablet - aluminum chloride (DRYSOL) 20 % external solution Review of Systems CONSTITUTIONAL: No fevers, chills night sweats, unintended w eight loss CARDIOVASCULAR: No chest pain, dyspnea, palpitations, orthop skyla, PND, ankle edema. PULM: No dyspnea, unexplained cough. GI: No dysphagia/odynophagia, problematic reflux, constipati on, diarrhea, changes in stool habits, hematochezia, melena. : No new urinary complaints, including dysuria, gross grisel turia or pyuria. NEURO: No new balance problems, peripheral weakness/paresthe perlita or numbness of concern. Physical Exam BP 122/76 (BP Site: Left Arm, BP Position: Sitting, BP Cuff Size: Large Adult) Pulse 87 Resp 12 Ht 162.6 cm (5' 4) Wt 88.9 kg (196 lb) SpO2 97% BMI 33.64 kg/m? General appearance: Well appearing, alert, in no acute distr ess, well nourished. Skin: Skin color, texture, turgor normal, no suspicious rash es or lesions Head: Normocephalic, no masses, lesions, tenderness or abnor malities Eyes: Anicteric sclera. Pupils are equally round and reactiv e to light. Extraocular movements are intact. Lungs: Lungs clear to auscultation. No wheezing, rhonchi, ra les Heart: RRR without murmur, gallop, or rubs. Extremities: No deformities, edema, skin discoloration, club memo or cyanosis. Good capillary refill. ASSESSMENT/PLAN: 1. Encounter for screening for diabetes mellitus - ICD9: V77 .1, ICD10: Z13.1 (primary diagnosis) - BASIC METABOLIC PNL 2. Anxiety - ICD9: 300.00, ICD10: F41.9 - SERTRALINE 50 MG TABLET 3. Migraine without aura and without status migrainosus, not intractable - ICD9: 346.10, ICD10: G43.009 - KETOROLAC 30 MG/ML (1 ML) INJECTION SOLUTION 4. Mixed hyperlipidemia - ICD9: 272.2, ICD10: E78.2 - good control - Continue current medication. - LIPID PANEL BASIC CRISTAL COUCH MD cnov on 2019-04-02 CNOV Office Visit (INTMWS) Normal 04-02-19 20 [facility] ARACELY IBRAHIM ([id number]) 1970 F [place] Date Time Provider Department ([id number]) 04/02/19 3:40 PM CRISTAL COUCH INTMWS During your visit today, we recorded the following informati on about you: Pulse Respiration Blood pressure Weight 87/minute 12/minute 122/76 88.9 kg Height 1.626 m CRISTAL COUCH MD 04/02/2019 5:36 PM Signed Reason for Visit Patient presents with: Established Patient: migraine x 4 days and discuss meds Aracely Truong Ibrahim is a 48 year old female who presents here tod ay for Above Complaints.. Health Maintenance DTAP,TDAP,TD(1 - Tdap) MAMMOGRAM INFLUENZA(1) HPI Migraine for the past many years, of late it has been during her periods always in addition to what she has other than the periods. Current migraine is lasted her 4 days. toraladol worked initially on day 2, but the next day it was on the other side. Currently she is on her period. She thinks her migraines have increased in frequency, she has to take 2 amerge instead of 1. She has been very busy the l ast year with her daughter who was not feeling well and really could not concentrate on her health but now she is ready to work on her health maintenance. Will get blood work and will get naima mogram done. No problem-specific Assessment AND Plan notes found for this encounter. PAST MEDICAL HISTORY Diagnosis Date - Allergic rhinitis, cause unspecified Allergic rhinitis - Dysthymic disorder Depression (non-psychotic) - Headache(784.0) Headaches migraines - Snoring - Unspecified sinusitis (chronic) Chronic sinusitis PAST SURGICAL HISTORY Procedure Laterality Date - DELIVERY ONLY 05/2004 , low cervical - COLONOSCOP W/ OR W/O [facility] SPEC 02/12/2016 repeat 5 years/family history colon cancer in father - DANDC, DIAG AND/OR THERAPEUTIC 1993 Dilation AND curettage for menorrhagia - ESSURE DEVICE - PAST SURGICAL HISTORY OF 09/03 sinus surgery FAMILY HISTORY Problem Relation Age of Onset - Stroke Mother 39 X2, caused by chiropractor - Hypertension Father - Headache Father - Colon Cancer Father - Prostate Cancer Father - other (Parkinson's Disease) Father - No Known Problems Brother - No Known Problems Daughter - Headache Paternal Grandmother - other (Other) Sister at 1 month of age (hole in heart) Social History Tobacco Use - Smoking status: Never Smoker - Smokeless tobacco: Never Used Substance Use Topics - Alcohol use: Yes Comment: Seldom - Drug use: No Past medical history, appointments, medications, allergies r eviewed. Pertinent Lab/Diagnostic Studies are reviewed and discussed today Current Outpatient Medications: - naratriptan (AMERGE) 2.5 mg tablet - sertraline (ZOLOFT) 50 mg tablet - ondansetron orally disintegrating (ZOFRAN ODT) 4 mg disi ntegrating tablet - promethazine (PHENERGAN) 50 mg tab(s) - QUEtiapine (SEROQUEL) 25 mg tablet - loratadine (CLARITIN) 10 mg tablet - aluminum chloride (DRYSOL) 20 % external solution Review of Systems CONSTITUTIONAL: No fevers, chills night sweats, unintended w eight loss CARDIOVASCULAR: No chest pain, dyspnea, palpitations, orth opnea, PND, ankle edema. PULM: No dyspnea, unexplained cough. GI: No dysphagia/odynophagia, problematic reflux, constipati on, diarrhea, changes in stool habits, hematochezia, melena. : No new urinary complaints, including dysuria, joselo s hematuria or pyuria. NEURO: No new balance problems, peripheral weakness/pa resthesias or numbness of concern. Physical Exam BP 122/76 (BP Site: Left Arm, BP Positio n: Sitting, BP Cuff Size: Large Adult) Pulse 87 Resp 12 Ht 162.6 cm (5' 4) Wt 88.9 kg (1 96 lb) SpO2 97% BMI 33.64 kg/m? General appearance: Well robert earing, alert, in no acute distress, well nourished. Skin: Skin color, texture, turgor normal, no suspicious rash es or lesions Head: Normocephalic, no masses, lesions, tenderness or abnor malities Eyes: Anicteric sclera. Pupils are equally round and reactiv e to light. Extraocular movements are intact. Lungs: Lungs clear to auscultation. No wheezing, rhonchi, ra les Heart: RRR without murmur, gallop, or rubs. Extremities: No deformities, edema, skin discolo ration, clubbing or cyanosis. Good capillary refill. ASSESSMENT/PLAN: 1. Encounter for screening for diabetes mellitus - ICD 9: V77.1, ICD10: Z13.1 (primary diagnosis) - BASIC METABOLIC PNL 2. Anxiety - ICD9: 300.00, ICD10: F41.9 - SERTRALINE 50 MG TABLET 3. Migraine without aura and without status migrainosus, not intractable - ICD9: 346.10, ICD10: G43.009 - KETOROLAC 30 MG/ML (1 ML) INJECTION SOLUTION 4. Mixed hyperlipidemia - ICD9: 272.2, ICD10: E78.2 - good control - Continue current medication. - LIPID PANEL BASIC CRISTAL COUCH MD Referring Provider: SELF [[id number]] Allergies As of Date: 04/02/2019 Noted Allergy Reaction AMOXIL (AMOXICILLIN) 02/14/2005 2 - Rash BACTRIM (SULFAMETHOXAZOLE-TRIMETH*02/16/2016 2 - Rash ERYTHROMYCIN 02/14/2005 11 - Vomiting PERCOCET (OXYCODONE-ACETAMINOPHEN)12/13/2005 11 - Vomiting Date Reviewed: 04/02/2019 Reviewed by: Audra Mcdonald LPN - Fully Assessed Reason for Visit: Established Patient [175] Cmt: migraine x 4 days and discuss meds Primary Visit Diagnosis:Encounter for screening for diabetes mellitus [Z13.1] Other Visit Diagnoses:Anxiety [F41.9] Migraine without aura and without status migrainosus, not intractable [G43.009] Mixed hyperlipidemia [E78.2] Breast cancer screening by mammogram [Z12.31] Migraine with aura and with status migrainosus, not intractable [G43.101] Order(s):sertraline (ZOLOFT) 50 mg tabletTake 1 tablet by sd ut once daily.Disp: 90 tabletRfl: 3 ketorolac (TORADOL) 30 mg/mL (1 mL) solnInject 60 mg intramu scularly one time only for 1 dose.Disp: 2 mLRfl: 1 LIPID PANEL BASIC [SQLIPB] Order #: [id number] FUTURE BASIC METABOLIC PNL [SQBMP] Order #: [id number] FUTURE topiramate (TOPAMAX) 25 mg tabletTake 1 tablet by mouth cheyenne y at bedtime.Disp: 30 tabletRfl: 3 NAIMA SCREENING [[id number]] Order #: [id number] FUTURE [] ketorolac 60 mg injection (TORADOL)Disp: Rfl: naratriptan (AMERGE) 2.5 mg tabletTAKE 1 TABLET BY MOUTH AT ONSET OF HEADACHE, MAY REPEAT IN 4 HOURS IF NEEDEDDisp: 9 tabletRfl: 3 Prescriptions as of 04/02/2019 Sig: SERTRALINE 50 MG TABLET Take 1 tablet by mouth once d* KETOROLAC 30 MG/ML (1 ML) INJ* Inject 60 mg intramuscularly * TOPIRAMATE 25 MG TABLET Take 1 tablet by mouth daily * NARATRIPTAN 2.5 MG TABLET TAKE 1 TABLET BY MOUTH AT ONS* ONDANSETRON 4 MG DISINTEGRATI* Take 1 tablet by mouth every * PROMETHAZINE 50 MG TABLET Take 1 tablet by mouth every * QUETIAPINE 25 MG TABLET Take 1 tablet by mouth three * LORATADINE 10 MG TABLET Take 1 tablet by mouth once d* Patient taking differently: Take 10 mg by mouth as needed* ALUMINUM CHLORIDE 20 % TOPICA* Apply 1 application to affect * Problem List As Of Date 04/02/2019 Noted Resolved Migraine without aura [G43.009] 01/07/2006 More... ADJUSTMENT DISORDER WITH DEPRESSED MOOD [F43.21]01/07/2006 More... 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 Prescriptions ordered this encounter Disp Refills Start End SERTRALINE 50 MG TABLET 90 t* 3 04/02/2019 Route: ORAL Sig: Take 1 tablet by mouth once daily. KETOROLAC 30 MG/ML (1 ML) INJECTION * 2 mL 1 04/02/201905/2019 Class: In Office Route: INTRAMUSCULA Sig: Inject 60 mg intramuscularly one time only for 1 dose. TOPIRAMATE 25 MG TABLET 30 t* 3 04/02/2019 Route: ORAL Sig: Take 1 tablet by mouth daily at bedtime. KETOROLAC 30 MG/ML (1 ML) INJECTION * 04/02/2019 04/02/2019 Route: INTRAMUSCULA NARATRIPTAN 2.5 MG TABLET 9 ta* 3 04/02/2019 Sig: TAKE 1 TABLET BY MOUTH AT ONSET OF HEADACHE, MAY REPEAT IN 4 HOURS IF NEEDED Medications Discontinued During This Encounter sertraline (ZOLOFT) 50 mg tablet 90 t* 3 10/28/2017 04/02/2019 Route: ORAL Sig: Take 1 tablet by mouth once daily. Disc: Reason for discontinue is not on file. ketorolac (TORADOL) 30 mg/mL (1 mL) * 2 mL 1 05/12/2018 020 Route: INTRAMUSCULAR Sig: Inject 60 mg intramuscularly one time only for 1 dose. Disc: Reason for discontinue is not on file. naratriptan (AMERGE) 2.5 mg tablet 9 ta* 0 01/18/2019 04/02/19 20 Sig: TAKE 1 TABLET BY MOUTH AT ONSET OF HEADACHE, MAY REPEAT IN 4 HOURS IF NEEDED Disc: Reason for discontinue is not on file. Encounter Status:Closed by CRISTAL COUCH MD on 04/02/19 obsolete on 2018-12 OBSOLETE Refill (INTMWS) Normal 01-18-2019 Herbie lopez [facility] IBRAHIMARACELY Guerin ([id number]) 1970 [facility] Time Provider Department ([id number]) 01/18/19 CRISTAL COUCH INTElWS During your visit today, we recorded the following informati on about you: Radha Tijerina Ma 01/18/2019 10:47 AM Signed Patient has been identified by name and date of : Yes Pharmacy phones for refill(s): Pending Prescriptions Disp Refills NARATRIPTAN 2.5 MG TABLET 9 tablet 11 Sig: TAKE 1 TABLET BY MOUTH AT ONSET OF HEADACHE, MAY REPEAT IN 4 HOURS IF NEEDED ISIS: No Date of last office visit in primary care: 07/11/18 Last 2 Encounter Wt Readings: Date: Wt: 08/07/2017 88.5 kg (195 lb) 07/11/2017 88 kg (194 lb) Previous labs/tests for medication: Not applicable Please advise. Thank you. Radha Mcdonald LPN 01/18/2019 4:19 PM Signed left message for patient to call office back to set up an ap pointment for follow up medication. Audra Mcdonald LPN The following approved medic ation requests have been transmitted electronically. Signed Prescriptions Disp Refills naratriptan (AMERGE) 2.5 mg tablet 9 tablet 0 Sig: TAKE 1 TABLET BY MOUTH AT ONSET OF HEADACHE, MAY REPEAT IN 4 HOURS IF NEEDED ISIS: No Authorizing Provider: CRISTAL COUCH Ordering User: TAWANNA AYALA CNP, LPN Allergies As of Date: 01/18/2019 Noted Allergy Reaction AMOXIL (AMOXICILLIN) 02/14/2005 2 - Rash BACTRIM (SULFAMETHOXAZOLE-TRIMETH*02/16/2016 2 - Rash ERYTHROMYCIN 02/14/2005 11 - Vomiting PERCOCET (OXYCODONE-ACETAMINOPHEN)12/13/2005 11 - Vomiting Date Reviewed: 08/07/2017 Reviewed by: Josey Sellers - Fully Assessed Reason for Visit: Refill Request [94] Order(s):naratriptan (AMERGE) 2.5 mg tabletTAKE 1 TABLET BY MOUTH AT ONSET OF HEADACHE, MAY REPEAT IN 4 HOURS IF NEEDEDDisp: 9 tabletRfl: 0 Prescriptions as of 01/18/2019 Sig: NARATRIPTAN 2.5 MG TABLET TAKE 1 TABLET BY MOUTH AT ONS* SERTRALINE 50 MG TABLET Take 1 tablet by mouth once d* ONDANSETRON 4 MG DISINTEGRATI* Take 1 tablet by mouth every * PROMETHAZINE 50 MG TABLET Take 1 tablet by mouth every * QUETIAPINE 25 MG TABLET Take 1 tablet by mouth three * LORATADINE 10 MG TABLET Take 1 tablet by mouth once d* Patient taking differently: Take 10 mg by mouth as needed* ALUMINUM CHLORIDE 20 % TOPICA* Apply 1 application to affect * Problem List As Of Date 01/18/2019 Noted Resolved Migraine without aura [G43.009] INVALID FOR* More... ADJUSTMENT DISORDER WITH DEPRESSED MOOD [F43.21]INVALID FOR* More... 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 Prescriptions ordered this encounter Disp Refills Start End NARATRIPTAN 2.5 MG TABLET 9 ta* 0 01/18/2019 Sig: TAKE 1 TABLET BY MOUTH AT ONSET OF HEADACHE, MAY REPEAT IN 4 HOURS IF NEEDED Medications Discontinued During This Encounter naratriptan (AMERGE) 2.5 mg tablet 9 ta* 11 08/29/2017 019 Sig: TAKE 1 TABLET BY MOUTH AT ONSET OF HEADACHE, MAY REPEAT IN 4 HOURS IF NEEDED Disc: Reason for discontinue is not on file. Encounter Status:Closed by AUDRA MCDONALD LPN on 01/18/19 Encounters Date Type Reason Provider Location 12-22-2019 - [facility] Adjustment disorder Cristal Couch Inter nal Medicine 12-22-2019 with depressed mood [place] Comment: Adjustment disorder with dep ressed mood (Primary Dx); Anxiety 12-08-2019 - 12-08-2019 Patient encounter Anxiety Cristalra Couch Internal Medicine procedure [place] Comment: Depression, unspecified depr ession type (Primary Dx); Anxiety; Mixed hyperlipidemia 01-03-2020 - 01-03-2020 Refill Cristal Couch [facility] Medicine [place] Comment: Refill Request 12-08-2019 - 12-08-2019 [facility] Procedure Name Date Provider Location Mammography 08-07-2017 - 08-07-2017 [facility] ([id number]) Colonoscopy 02-12-2016 - 02-12-2016 [facility] ([id number]) Plan of Treatment Plan Description Date Location HPV TESTING HPV TESTING 08-07-2022 - [facility] 08-07-2022 ([id number]) PAP TESTING PAP TESTING 08-07-2022 - [facility] 08-07-2022 ([id number]) LIPID SCREEN LIPID SCREEN 05-30-2022 - [facility] 05-30-2022 ([id number]) COLONOSCOPY COLONOSCOPY 02-11-2021 - [facility] 02-11-2021 ([id number]) DIABETES SCREEN DIABETES SCREEN 05-30-2020 - [facility] 05-30-2020 ([id number]) INFLUENZA (#1) INFLUENZA (#1) 2019 - [facility] 11-30-2019 ([id number]) MAMMOGRAM MAMMOGRAM 08-07-2018 - [facility] 08-07-2018 ([id number]) DTAP,TDAP,TD (1 - Tdap) DTAP,TDAP,TD (1 - Tdap) 1991 - [facility] 1991 ([id number]) HEPATITIS C SCREENING HEPATITIS C SCREENING 1990 - [facility] 1990 ([id number]) HIV SCREENING HIV SCREENING 1990 - [facility] 1990 ([id number]) no information [facility] ([id number]) Payers Payer Name Policy Number Location MMO [id number] [facility] ([id number] [phone]) The following information is from the original human readable contentNo Payer Records Found Social History Type Social History Date Location Description Tobacco smoking status Never smoker 12-06-2019 - [facility] 12-06-2019 ([id number]) Tobacco use and exposure Never used 12-06-2019 - [facility] 12-06-2019 ([id number]) Alcohol intake Current drinker of 12-06-2019 [facility] Cli raul alcohol (finding) 12-06-2019 ([id number]) History SDOH Alcohol 2 12-06-2019 [facility] C linic Frequency 12-06-2019 ([id number]) History SDOH Alcohol Std 1 12-06-2019 [facility] Drinks 12-06-2019 ([id number]) History SDOH Social 5 12-06-2019 [facility] Phone 12-06-2019 ([id number]) History SDOH Physical 0 12-06-2019 - [facility] Activity DPW 12-06-2019 ([id number]) History SDOH Education 17 12-06-2019 - [facility] 12-06-2019 ([id number]) History SDOH Financial 4 12-06-2019 - [facility] 12-06-2019 ([id number]) Sex Assigned At Not on file [facility] ([id number]) The following information is from the original human VIPAARable contentNo Social History Records Found History of Past Illness Problem Noted Date Resolved Date Benign neoplasm of skin of other and unspecified parts of 03/07/2015 face Benign neoplasm of skin of trunk, except scrotum 08/04/2006 03/07/2015 Benign neoplasm of skin of upper limb, including shoulder 03/07/2015 Benign neoplasm of skin of lower limb, including hip 007 03/07/2015 Other chronic dermatitis due to solar radiation 08/04/2006 03/07/2015 Generalized hyperhidrosis 08/04/2006 03/07/2015 Scar condition and fibrosis of skin 08/04/200610/2014 Problem Noted Date Resolved Date Benign neoplasm of skin of other and unspecified parts of 03/07/2015 face Benign neoplasm of skin of trunk, except scrotum 08/04/2006 03/07/2015 Benign neoplasm of skin of upper limb, including shoulder 03/07/2015 Benign neoplasm of skin of lower limb, including hip 007 03/07/2015 Other chronic dermatitis due to solar radiation 08/04/2006 03/07/2015 Generalized hyperhidrosis 08/04/2006 03/07/2015 Scar condition and fibrosis of skin 08/04/200610/2014 Problem Noted Date Resolved Date Benign neoplasm of skin of other and unspecified parts of 03/07/2015 face Benign neoplasm of skin of trunk, except scrotum 08/04/2006 03/07/2015 Benign neoplasm of skin of upper limb, including shoulder 03/07/2015 Benign neoplasm of skin of lower limb, including hip 007 03/07/2015 Other chronic dermatitis due to solar radiation 08/04/2006 03/07/2015 Generalized hyperhidrosis 08/04/2006 03/07/2015 Scar condition and fibrosis of skin 08/04/200610/2014 History of Present Illness Cristal Couch - 12/08/2019 9:46 AM EDT Chief Complaint No chief complaint on file. This Team Access Model visit is a virtual encounter. It required patient- provider interaction for the medical decision making as documented below. SJ Ibrahim is a 49 year old female who is contacted today for a virtual/telemedicine visit. Thisis an established patient of Dr. CRISTAL COUCH MD. Patient is going through a divorce, she never expected this. She notes she is really struggling right now, as they live in the the same house and he is out and dating, while she is having a hard time to let go. To add to that , with school being different she has so much to do that is different no down time. She is Seeing a therapist who is definitely helping her. Past medical history, appointments, medications, allergies reviewed 12/08/2019 Previous Medical History PAST MEDICAL HISTORY Diagnosis Date ? Allergic rhinitis, cause unspecified Allergic rhinitis ? Choroidal effusion 04/16/2019 secondary to topamax use ? Dysthymic disorder Depression (non-psychotic) ? Headache(784.0) Headaches migraines ? Snoring ? Unspecified sinusitis (chronic) Chronic sinusitis Previous Surgical History PAST SURGICAL HISTORY Procedure Laterality Date ? DELIVERY ONLY 05/2004 , low cervical ? COLONOSCOP W/ OR W/O [facility] SPEC 02/12/2016 repeat 5 years/family history colon cancer in father ? D&C, DIAG AND/OR THERAPEUTIC 1993 Dilation & curettage for menorrhagia ? ESSURE DEVICE ? PAST SURGICAL HISTORY OF 09/03 sinus surgery Family History FAMILY HISTORY Problem Relation Age of Onset ? Stroke Mother 39 X2, caused by chiropractor ? Hypertension Father ? Headache Father ? Colon Cancer Father ? Prostate Cancer Father ? other (Parkinson's Disease) Father ? No Known Problems Brother ? No Known Problems Daughter ? Headache Paternal Grandmother ? other (Other) Sister at 1 month of age (hole in heart) Patient Allergies ALLERGIES Allergen Reactions ? Amoxil [Amoxicillin] Rash ? Bactrim [Sulfametho* Rash ? Erythromycin Vomiting ? Percocet [Oxycodone* Vomiting ? Topamax [Topiramate] Other: See Comments Vision changes Current Medications Current Outpatient Medications on File Prior to Visit Medication Sig ? sertraline (ZOLOFT) 50 mg tablet Take 1 tablet by mouth once daily. ? naratriptan (AMERGE) 2.5 mg tablet TAKE 1 TABLET BY MOUTH AT ONSET OF HEADACHE, MAY REPEAT IN 4 HOURS IF NEEDED ? ondansetron orally disintegrating (ZOFRAN ODT) 4 mg disintegrating tablet Take 1 tablet by mouth every 6 hours as needed for Nausea/Vomiting. ? promethazine (PHENERGAN) 50 mg tab(s) Take 1 tablet by mouth every 6 hours as needed. ? QUEtiapine (SEROQUEL) 25 mg tablet Take 1 tablet by mouth three times daily as needed. TAKE ONE TOTWO TABLETS THREE TIMES DAILY NEEDED ? loratadine (CLARITIN) 10 mg tablet Take 1 tablet by mouth once daily. (Patient taking differently:Take 10 mg by mouth as needed. ) ? aluminum chloride (DRYSOL) 20 % external solution Apply 1 application to affected area daily as directed. No current facility-administered medications on file prior to visit. Social History Social History Tobacco Use ? Smoking status: Never Smoker ? Smokeless tobacco: Never Used Substance Use Topics ? Alcohol use: Yes Frequency: Monthly or less Drinks per session: 1 or 2 Binge frequency: Never Comment: Seldom ? Drug use: No Review of Symptoms GENERAL: No weight loss. No malaise or fevers HEENT: Negative for headaches No eye discharge or redness No earaches or drainage No sore throat Nose POS/NEG for congestion and nasal discharge NECK: Negative for lumps, pain or significant neck swelling RESPIRATORY: No wheezing, SOB, Difficulty breathing. CARDIOVASCULAR: Negative for chest pain GI: No nausea, vomiting, or diarrhea MUSCULOSKELETAL: Negative for muscle aches or bodyaches SKIN: Negative for lesions, rash, and itching Neuro: No lightheadedness or dizziness EXAM: LMP 07/10/2017 (Approximate) Deferred physical exam as visit was completed over the phone. Virtual visit completed using video, limited exam completed. General Appearance: Well appearing, alert, in no acute distress, well-hydrated, well nourished. Skin: Skin color Head: Normocephalic Psych: Attitude - cooperative, easily engaged in conversation Appearance - normal, hygiene and grooming appropriate Affect - euthymic, normal mood Mental status: Alert, attentive. Speech is clear and fluent with good repetition, comprehension Coordination: No abnormal or extraneous movements. Gait/Stance: Posture is normal. Health Maintenance List HEPATITIS C SCREENING due on 1990 HIV SCREENING due on 1990 DTAP,TDAP,TD(1 - Tdap) due on 1991 MAMMOGRAM due on 08/07/2018 INFLUENZA(1) due on 11/30/2019 DIABETES SCREEN due on 05/30/2020 COLONOSCOPY due on 02/11/2021 LIPID SCREEN due on 05/30/2022 PAP TESTING due on 08/07/2022 HPV TESTING due on 08/07/2022 MENINGOCOCCAL CONJUGATE Completed Data reviewed Last 5 Encounter BP Readings: Date: BP: 04/15/2019 138/88 04/02/2019 122/76 08/07/2017 130/84 07/11/2017 136/86 05/30/2017 114/76 BMI Readings from Last 5 Encounters: 04/15/19 : 33.81 kg/m? 04/02/19 : 33.64 kg/m? 08/07/17 : 33.47 kg/m? 07/11/17 : 33.30 kg/m? 05/30/17 : 32.27 kg/m? Last 5 Encounter Wt Readings: Date: Wt: 04/15/2019 89.4 kg (197 lb) 04/02/2019 88.9 kg (196 lb) 08/07/2017 88.5 kg (195 lb) 07/11/2017 88 kg (194 lb) 05/30/2017 85.3 kg (188 lb) Medication and allergy list reviewed, reconciled and updated 12/08/2019. ASSESSMENT/PLAN: 1. Depression, unspecified depression type - ICD9: 311, ICD10: F32.9 (primary diagnosis) See hpi, she will benefit from trying a different medication as she was not doing well on the zoloft 2. Anxiety - ICD9: 300.00, ICD10: F41.9 lexapro will help her with both 3. Mixed hyperlipidemia - ICD9: 272.2, ICD10: E78.2 - good control - Continue current medication. CRISTAL COUCH MD documented in this encounterCristal Couch - 12/22/2019 9:24 AM EDT Chief Complaint No chief complaint on file. This Team Access Model visit is a virtual encounter. It required patient- provider interaction for the medical decision making as documented below. HPI Aracely Ibrahim is a 49 year old female who is contacted today for a virtual/telemedicine visit. Thisis an established patient of Dr. CRISTAL COUCH MD. Aracely has been having a hard time with her divorce, she knew she was not getting better at all so we changed her to lexapro and stopped the zoloft she now is feeling much much better, def feels that things are looking up in just 2 weeks and wants to cont to see how she does. Taking counseling from [facility] and had one yesterday and that made her feel much much better too. She is very very happy about her improvement Past medical history, appointments, medications, allergies reviewed 12/22/2019 Previous Medical History PAST MEDICAL HISTORY Diagnosis Date ? Allergic rhinitis, cause unspecified Allergic rhinitis ? Choroidal effusion 04/16/2019 secondary to topamax use ? Dysthymic disorder Depression (non-psychotic) ? Headache(784.0) Headaches migraines ? Snoring ? Unspecified sinusitis (chronic) Chronic sinusitis Previous Surgical History PAST SURGICAL HISTORY Procedure Laterality Date ? DELIVERY ONLY 05/2004 , low cervical ? COLONOSCOP W/ OR W/O [facility] SPEC 02/12/2016 repeat 5 years/family history colon cancer in father ? D&C, DIAG AND/OR THERAPEUTIC 1993 Dilation & curettage for menorrhagia ? ESSURE DEVICE ? PAST SURGICAL HISTORY OF 09/03 sinus surgery Family History FAMILY HISTORY Problem Relation Age of Onset ? Stroke Mother 39 X2, caused by chiropractor ? Hypertension Father ? Headache Father ? Colon Cancer Father ? Prostate Cancer Father ? other (Parkinson's Disease) Father ? No Known Problems Brother ? No Known Problems Daughter ? Headache Paternal Grandmother ? other (Other) Sister at 1 month of age (hole in heart) Patient Allergies ALLERGIES Allergen Reactions ? Amoxil [Amoxicillin] Rash ? Bactrim [Sulfametho* Rash ? Erythromycin Vomiting ? Percocet [Oxycodone* Vomiting ? Topamax [Topiramate] Other: See Comments Vision changes Current Medications Current Outpatient Medications on File Prior to Visit Medication Sig ? escitalopram oxalate (LEXAPRO) 20 mg tablet Take 1 tablet by mouth once daily. ? naratriptan (AMERGE) 2.5 mg tablet TAKE 1 TABLET BY MOUTH AT ONSET OF HEADACHE, MAY REPEAT IN 4 HOURS IF NEEDED ? ondansetron orally disintegrating (ZOFRAN ODT) 4 mg disintegrating tablet Take 1 tablet by mouth every 6 hours as needed for Nausea/Vomiting. ? promethazine (PHENERGAN) 50 mg tab(s) Take 1 tablet by mouth every 6 hours as needed. ? QUEtiapine (SEROQUEL) 25 mg tablet Take 1 tablet by mouth three times daily as needed. TAKE ONE TOTWO TABLETS THREE TIMES DAILY NEEDED ? loratadine (CLARITIN) 10 mg tablet Take 1 tablet by mouth once daily. (Patient taking differently:Take 10 mg by mouth as needed. ) ? aluminum chloride (DRYSOL) 20 % external solution Apply 1 application to affected area daily as directed. No current facility-administered medications on file prior to visit. Social History Social History Tobacco Use ? Smoking status: Never Smoker ? Smokeless tobacco: Never Used Substance Use Topics ? Alcohol use: Yes Frequency: Monthly or less Drinks per session: 1 or 2 Binge frequency: Never Comment: Seldom ? Drug use: No Review of Symptoms GENERAL: No weight loss. No malaise or fevers HEENT: Negative for headaches No eye discharge or redness No earaches or drainage No sore throat Nose POS/NEG for congestion and nasal discharge NECK: Negative for lumps, pain or significant neck swelling RESPIRATORY: No wheezing, SOB, Difficulty breathing. CARDIOVASCULAR: Negative for chest pain GI: No nausea, vomiting, or diarrhea MUSCULOSKELETAL: Negative for muscle aches or bodyaches SKIN: Negative for lesions, rash, and itching Neuro: No lightheadedness or dizziness EXAM: LMP 07/10/2017 (Approximate) Deferred physical exam as visit was completed over the phone. Virtual visit completed using video, limited exam completed. General Appearance: Well appearing, alert, in no acute distress, well-hydrated, well nourished. Skin: Skin color Head: Normocephalic Psych: Attitude - cooperative, easily engaged in conversation Appearance - normal, hygiene and grooming appropriate Affect - euthymic, normal mood Mental status: Alert, attentive. Speech is clear and fluent with good repetition, comprehension Coordination: No abnormal or extraneous movements. Gait/Stance: Posture is normal. Health Maintenance List HEPATITIS C SCREENING due on 1990 HIV SCREENING due on 1990 DTAP,TDAP,TD(1 - Tdap) due on 1991 MAMMOGRAM due on 08/07/2018 INFLUENZA(1) due on 11/30/2019 DIABETES SCREEN due on 05/30/2020 COLONOSCOPY due on 02/11/2021 LIPID SCREEN due on 05/30/2022 PAP TESTING due on 08/07/2022 HPV TESTING due on 08/07/2022 MENINGOCOCCAL CONJUGATE Completed Data reviewed Last 5 Encounter BP Readings: Date: BP: 04/15/2019 138/88 04/02/2019 122/76 08/07/2017 130/84 07/11/2017 136/86 05/30/2017 114/76 BMI Readings from Last 5 Encounters: 04/15/19 : 33.81 kg/m? 04/02/19 : 33.64 kg/m? 08/07/17 : 33.47 kg/m? 07/11/17 : 33.30 kg/m? 05/30/17 : 32.27 kg/m? Last 5 Encounter Wt Readings: Date: Wt: 04/15/2019 89.4 kg (197 lb) 04/02/2019 88.9 kg (196 lb) 08/07/2017 88.5 kg (195 lb) 07/11/2017 88 kg (194 lb) 05/30/2017 85.3 kg (188 lb) Medication and allergy list reviewed, reconciled and updated 12/22/2019. ASSESSMENT/PLAN: 1. Adjustment disorder with depressed mood - ICD9: 309.0, ICD10: F43.21 (primary diagnosis) I asked the patient to con lexapro, we will see her in 2 weeks at that time if she feels she needs to have anything added on we can decide that 2. 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 This clinical summary was aggregated from multiple sources. Caution should be exercised in using it in the provision of clinical care. This summary normalizes information from multiple sources, and as a consequence, information in this document may materially changethe coding, format and clinical context of patient data. In addition, data may be omittedin some cases. CLINICAL DECISIONS SHOULD BE BASED ON THE PRIMARY CLINICAL RECORDS. [employer] provides no warranty or guarantee of the accuracy or completeness of information in this document. UNRECOGNIZED CONTENT PROVIDED BELOW FOR UNRECOGNIZED SECTION Source Comments In the event this information is protected by the Federal Confidentiality of Alcohol and Drug Abuse Patient Records regulations: The Federal rules restrict any use of the information to criminally investigate or prosecute any alcohol or drug abuse patient.[facility] the event this information is protected by the Federal Confidentiality of Alcohol and Drug Abuse Patient Records regulations: The Federal rules restrict any use of the information to criminally investigate or prosecute any alcohol or drug abuse patient.[facility] the event this information is protected by the Federal Confidentiality of Alcohol and Drug Abuse Patient Records regulations: The Federal rules restrict any use of the information to criminally investigate or prosecute any alcohol or drug abuse patient.[facility] UNRECOGNIZED CONTENT PROVIDED BELOW FOR UNRECOGNIZED SECTION Reason for Visit Reason Comments Depression Reason Onset Date Comments Refill Request 01/03/2020 UNRECOGNIZED CONTENT PROVIDED BELOW FOR UNRECOGNIZED SECTION Miscellaneous Notes Telephone Encounter - Lauren Sweeney LPN - 01/04/2020 9:44 AM EDT Patient has been identified by name and date of : Yes Patient phones for refill(s): Pending Prescriptions Disp Refills ESCITALOPRAM 20 MG TABLET 90 tablet 1 Sig: Take 1 tablet by mouth once daily. ISIS: No NARATRIPTAN 2.5 MG TABLET 9 tablet 3 Sig: TAKE 1 TABLET BY MOUTH AT ONSET OF HEADACHE, MAY REPEAT IN 4 HOURS IF NEEDED ISIS: No Date of last office visit in primary care: 12/22/2019 3 month follow-up: 03/22/2020 Lauren Sweeney LPN Telephone Encounter - Lamar Gilmore - 01/03/2020 11:25 AM EDT Patient's request for medication is as follows: Pending Prescriptions Disp Refills ESCITALOPRAM 20 MG TABLET 90 tablet 1 Sig: Take 1 tablet by mouth once daily. ISIS: No NARATRIPTAN 2.5 MG TABLET 9 tablet 3 Sig: TAKE 1 TABLET BY MOUTH AT ONSET OF HEADACHE, MAY REPEAT IN 4 HOURS IF NEEDED ISIS: No Prescription(s) as above. Please process accordingly. Lamar Sims documented in this encounter UNRECOGNIZED CONTENT PROVIDED BELOW FOR UNRECOGNIZED SECTION INFORMATION SOURCE DATE CREATED AUTHOR AUTHOR'S ORGANIZATIO N 01/05/2020 [facility] Herbie lopez
== END ==
PROVIDERS: PCP Internal Medicine; Referring Provider Registered Nurse; Visit Provider Registered Nurse
DX: Z20.828 Contact with and (suspected) exposure to other viral communicable diseases (principal)
CPT/HCPCS: 87635; G2023; U0003

== ENCOUNTER → 2020-12-08 | Outpatient (CLI) | payer OTHER, SELFPAY | END | disposition home or self-care (01) | LOC: LABSPEC 16:11 | PROVIDERS: PCP Internal Medicine; Visit Provider Physician Assistant Surgical | DX: R50.9 Fever, unspecified (principal) | CPT/HCPCS: 87635; U0005; U0003 ==

== ENCOUNTER → 2020-12-14 | Outpatient (CLI) | payer OTHER, SELFPAY | END | disposition home or self-care (01) | PROVIDERS: PCP Internal Medicine; Visit Provider Physician Assistant | DX: Z11.52 Encounter for screening for COVID-19 (principal) | CPT/HCPCS: 87635; U0005; U0003 ==